=== PATIENT | male | born 1995 | race Caucasian/White ===

== ENCOUNTER 2020-04-23 15:06 | Emergency (ER) | payer OTHER, SELFPAY ==
[2020-04-23 15:07] VITALS: BP 130/80; PULSE 84; RESP 16; TEMP 36.5; O2SAT 97; BMI 25.9
--- NOTE | 2020-04-23 16:56 | ED.DCSUM_ITS ---
History of Present Illness Chief Complaint: Lower Extremity Injury Informant: Patient Narrative: 25-year-old male presenting with left knee pain. He states this initially started 3 days ago when he was trying to get out of the back of a truck and his foot got caught and he twisted his knee also adding of valgus strain. He states he heard a pop. He is was initially ambulatory but he notes that his keeps popping and it is now more painful. He states he is unable to walk on it now without limping. He states he has no other medical problems. I did ask him if he felt like he dislocated it forward or backwards and dated that he twisted it. No paresthesias. Past Medical History - Allergies and Home Meds Allergies/Adverse Reactions: Allergies No Known Allergies Allergy (Verified 04/23/20 15:09) Primary Care Physician: Care Physician,No Primary [Primary Care Provider] - Past Medical History: None Surgical History: no surgical history Lives: Spouse/ Significant Other Smoking Status: Never smoker Alcohol: None Drugs: None Review of Systems General: Denies: Chills, Fever, Sweats Eyes: Denies: Visual changes - bilaterally, Diplopia ENT: Reports: -, -. Denies: Left ear pain, Right ear pain, Rhinorrhea, Sore throat Cardiovascular: Denies: Chest pain, Palpitations Respiratory: Denies: Dyspnea, Cough, Dyspnea on exertion Gastrointestinal: Denies: Abdominal pain, Nausea, Vomiting, Diarrhea, Melena, Hematochezia Genitourinary: Denies: Dysuria, Hematuria, Frequency Musculoskeletal: Reports: Extremity Pain - Left knee pain Skin: Denies: Rash, Abscess Physical Exam Vital Signs/Narrative: Vital Signs Temp Pulse Resp BP Pulse Ox 04/23/20 15:07 97.7 F L 84 16 130/80 H 97 Inital Vital Signs reviewed: Yes General: Well nourished, No Acute Distress Head: Normocephalic, Atraumatic ENT: Moist mucous membranes Cardiovascular: Regular rate, Regular rhythm Respiratory: No distress, CTA bilaterally Extremities: - - Left knee has tenderness to palpation along the medial joint line. Anterior and posterior drawer are normal and show no ligament laxity. Patient has significant pain with valgus stress. Skin: Normal color, No rash Neurological: Alert, Oriented x3 Psychological: Normal affect Diagnostic/Tx/Re-eval - Medical Decision Making She presents with left knee pain after twisting injury. He states it continues to pop when he twists. He feels like it is popping when he walks as well. His knee pain is located on the medial joint line of the left knee. He has pain with valgus strain. He has no anterior posterior ligament laxity. I do have concern for possible medial ligament injury and meniscal injury. Patient was counseled of this. He states that he will follow-up with his mother's orthopedist that she sees. He does not require crutches. He is counseled on compression and icing as well as NSAIDs for pain. He is discharged home in stable condition Impression: 1. Left knee sprain 2. Concern for medial meniscus and ligamentous injury ED Disposition - Plan for ED Patient: Disposition: Home or Assisted Living Instructions: ED Meniscal Injury Knee Poss, ED Sprain Knee Prescriptions: Naproxen [Naprosyn] 500 mg PO BID PRN #20 tab Transmission Status: Received by [id number] Hydrocodone/Acetaminophen [[place] 5-325 Tablet] 1 ea PO Q6H PRN PRN 3 Days #12 tab PRN Reason: Pain Prescription Printed Referrals: Care Physician,No Primary [Primary Care Provider] -
--- NOTE | 2020-04-23 17:22 | RAD_ITS ---
STUDY: X-RAY - LEFT KNEE REASON FOR EXAM: Male, 25 years old. PATIENT STATES: KNEELED ON KNEE TODAY AND FELT A POP. NOW, UNABLE TO PUT WEIGHT ON LEFT LEG/KNEE. MOST PAINFUL TO STRAIGHTEN KNEE AND FEELS PAIN ALONG MEDIAL SIDE OF KNEE ALONG PATELLA AREA TECHNIQUE: 4 view(s) of the knee. COMPARISON: None. FINDINGS: Normal visualized distal femur. Normal visualized proximal tibia and fibula. Normal proximal tibiofibular articulation. Normal medial femorotibial compartment. Normal lateral femorotibial compartment. Normal patellofemoral articulation. The soft tissue structures are unremarkable. RAD/Knee 4 or More Views IMPRESSION: Normal x-ray examination of the knee. Electronically Signed: Christiano Diaz MD at 18:00 EDT Tel , Service support ,
[2020-04-23] MEDS: oxyCODONE 5 MG Tablet PO (17:23)
[2020-04-23 18:43] VITALS: BP 118/76; PULSE 59; RESP 16; O2SAT 98
== END 2020-04-23 18:43 | disposition home or self-care (01) ==
PROVIDERS: Emergency Provider Student in an Organized Health Care Education/Training Program
DX: S83.92XA Sprain of unspecified site of left knee, initial encounter (principal); X58.XXXA Exposure to other specified factors, initial encounter
CPT/HCPCS: 73564; 99283